=== PATIENT | female | born 1995 | race Caucasian/White ===

== ENCOUNTER 2020-09-29 02:25 | Emergency (ER) | payer OTHER ==
[~2020-09-29 02:25] MED LIST: COLACE 100MG C100 MG PO; DEXTROAMP-AMPHE15 MG PO; NAPROXEN 250 M250 MG PO; OMNICEF 300 MG300 MG PO; PYRIDIUM200 MG PO; SUBOXONE 8 MG-1 EACH SL
[2020-09-29 03:48] LABS: HEMOGLOBIN 16.1 gm/dl (12.3-15.3); RED BLOOD COUNT 5.01 M/UL (4.00-5.10)
[2020-09-29 04:09] LABS: BUN/CREATININE RATIO 11 (0-10)
[2020-09-29] MEDS ORDERED: ZOFRAN 4 MG TAB4 MG PO (05:35)
== END 2020-09-29 05:50 | disposition home or self-care (01) ==
LOC: ER1 02:25
PROVIDERS: Physician Assistant
DX: R51.9 Headache, unspecified (principal); R11.2 Nausea with vomiting, unspecified; F17.210 Nicotine dependence, cigarettes, uncomplicated; Z88.0 Allergy status to penicillin; Z98.890 Other specified postprocedural states
CPT/HCPCS: 0240U; 70450; 80053; 81001; 83605; 83690; 84703; 85025; 87086; 96374; 96375; 99284; J1885; J2405

== ENCOUNTER 2021-01-17 15:44 | Emergency (ER) | payer OTHER ==
[~2021-01-17 15:44] MED LIST changes: +ZOFRAN 4 MG TAB4 MG PO
[2021-01-17 16:58] LABS: HEMOGLOBIN 17.1 gm/dl (12.3-15.3); RED BLOOD COUNT 5.2 M/UL (4.00-5.10); WHITE BLOOD COUNT 19.2 K/UL (4.5-11.0)
[2021-01-17 17:17] LABS: BUN/CREATININE RATIO 14 (0-10)
[2021-01-17] MEDS ORDERED: OMNICEF 300 MG300 MG PO (19:21)
== END 2021-01-17 21:00 | disposition home or self-care (01) ==
LOC: ER1 15:44
PROVIDERS: Physician Assistant
DX: N39.0 Urinary tract infection, site not specified (principal); R11.2 Nausea with vomiting, unspecified; F17.200 Nicotine dependence, unspecified, uncomplicated; Z88.0 Allergy status to penicillin; Z79.899 Other long term (current) drug therapy
CPT/HCPCS: 80053; 81001; 82150; 83690; 84703; 85025; 87077; 87086; 87186; 96374; 96375; 99284; J0696; J2405; J7030

== ENCOUNTER 2022-01-11 16:12 | Emergency (ER) | payer OTHER ==
[2022-01-11 16:37] LABS: HEMOGLOBIN 13.7 gm/dl (12.3-15.3); RED BLOOD COUNT 4.28 M/UL (4.00-5.10); WHITE BLOOD COUNT 15.8 K/UL (4.5-11.0)
[2022-01-11 17:03] LABS: BUN/CREATININE RATIO 15 (0-10)
[2022-01-11] MEDS ORDERED: OMNICEF 300 MG300 MG PO (20:44)
== END 2022-01-11 21:00 | disposition home or self-care (01) ==
LOC: ER1 16:12
PROVIDERS: Physician Assistant Medical
DX: O23.41 Unspecified infection of urinary tract in pregnancy, first trimester (principal); N39.0 Urinary tract infection, site not specified; O99.891 Other specified diseases and conditions complicating pregnancy; R00.0 Tachycardia, unspecified; O99.331 Smoking (tobacco) complicating pregnancy, first trimester; F17.210 Nicotine dependence, cigarettes, uncomplicated; Z87.440 Personal history of urinary (tract) infections; Z88.0 Allergy status to penicillin; Z3A.10 10 weeks gestation of pregnancy
CPT/HCPCS: 76775; 80053; 80307; 81001; 82550; 82553; 83605; 84484; 85025; 87040; 87086; 93005; 96374; 99284; J0696